=== PATIENT | female | born 1990 | race Caucasian/White ===

== ENCOUNTER 2021-03-24 12:08 | Inpatient (IN) | payer MEDICAID, OTHER ==
[~2021-03-24] VITALS: Ht 144.8 cm; Wt 68.3 kg
[2021-03-24 13:04] LABS: BASOPHILS % (AUTO) 0.3 % (0.0-2.0); EOSINOPHILS % (AUTO) 0.2 % (1.0-6.0); HEMATOCRIT 37.1 % (36-46); HEMOGLOBIN 12.5 g/dL (12.0-16.0); LYMPHOCYTES % (AUTO) 17.9 % (22.0-44.0); MEAN CORPUSCULAR HEMOGLOBIN 27.8 pg (26.0-34.0); MEAN CORPUSCULAR HGB CONC 33.6 G/dL (31.0-37.0); MEAN CORPUSCULAR VOLUME 83 fL (80-100); MONOCYTES # (AUTO) 0.8 K/uL (0.1-1.0); MONOCYTES % (AUTO) 6.9 % (2.0-9.0); NEUTROPHILS # (AUTO) 8.1 K/uL (1.8-7.7); NEUTROPHILS % (AUTO) 74.7 % (40.0-70.0); PLATELET COUNT (AUTO) 307 K/uL (150-450); RED BLOOD CELL COUNT(AUTO) 4.48 MIL/uL (4.00-5.20); RED CELL DISTRIBUTION WIDTH 13.4 % (11.5-14.5)
[2021-03-24 13:19] LABS: ANION GAP 3 mmol/L (8-16); CALCIUM, TOTAL 9.3 mg/dL (8.8-10.5); CARBON DIOXIDE 32 mmol/L (22-29); CHLORIDE 104 mmol/L (98-107); CREATININE 0.71 mg/dL (0.60-1.30); GLOMERULAR FILTR. RATE CALC > 60 mL/min (>60); GLUCOSE,RANDOM 103 mg/dL (70-110); POTASSIUM 3.5 mmol/L (3.5-5.1); SODIUM SERUM 139 mmol/L (136-145); UREA NITROGEN, BLOOD 17 mg/dL (7-18)
[2021-03-24 13:23] LABS: COVID AG,FIA SOURCE NASOPHARYNGEAL
[2021-03-24 13:28] LABS: ALANINE AMINOTRANSFERASE 20 U/L (12-78); ALBUMIN 3.6 g/dL (3.4-5.0); ALKALINE PHOSPHATASE 94 U/L (46-116); ASPARTATE AMINOTRANSFERASE 15 U/L (15-37); BILIRUBIN,TOTAL 0.4 mg/dL (0.1-1.0); TOTAL PROTEIN, SERUM 7.2 g/dL (6.4-8.2)
[2021-03-24 13:45] LABS: HCG,QUANTITATIVE 1 mIU/mL (0-6)
[2021-03-24] MEDS ORDERED: ZOLPIDEM TARTRATE 10 MG TABLET PO PRN (15:00)
[2021-03-24] MEDS ORDERED: INFLUENZA VIRUS VACCINE QVS 2021-22 (6MO+)/PF 60 MCG/0.5 ML SYRINGE IM. ONE (20:00)
[2021-03-24 20:09] VITALS: BP 122/79
[2021-03-25 08:00] VITALS: BP 124/82
[2021-03-25 16:15] VITALS: BP 123/86
[2021-03-25] MEDS: LORazepam 2 MG TABLET PO PRN (18:50)
[2021-03-25] MEDS: HALOPERIDOL 5 MG TABLET PO PRN (18:50)
[2021-03-25] MEDS ORDERED: DOCUSATE SODIUM 100 MG CAPSULE PO PRN (20:30)
[2021-03-25] MEDS ORDERED: IBUPROFEN 600 MG TABLET PO PRN (20:30)
[2021-03-25] MEDS ORDERED: PETROLATUM,WHITE 28 GM JELLY TP PRN (20:30)
[2021-03-25] MEDS ORDERED: CloNIDine HCL 0.1 MG TABLET PO PRN (20:30)
[2021-03-25] MEDS ORDERED: MAGNESIUM HYDROXIDE SUSPENSION 30 ML UDCUP PO PRN (20:30)
[2021-03-25] MEDS ORDERED: ALBUTEROL SULFATE HFA 90 MCG/PUFF 8 GM INHALER IH PRN (20:30)
[2021-03-25] MEDS ORDERED: OMEPRAZOLE 20 MG CAPSULE PO PRN (20:30)
[2021-03-25] MEDS ORDERED: ACETAMINOPHEN 325 MG TABLET PO PRN (20:30)
[2021-03-25] MEDS ORDERED: BACITRACIN 28 GM OINTMENT TP PRN (20:30)
[2021-03-25] MEDS ORDERED: LOPERAMIDE HCL 2 MG CAPSULE PO PRN (20:30)
[2021-03-25] MEDS ORDERED: ONDANSETRON HCL 4 MG TABLET PO PRN (20:30)
[2021-03-25] MEDS ORDERED: BENZOCAINE/MENTHOL LOZENGE PO PRN (20:30)
[2021-03-25] MEDS ORDERED: MAG HYDROX/AL HYDROX/SIMETH ES 30 ML SUSPENSION UDCUP PO PRN (20:30)
[2021-03-26 08:09] VITALS: BP 130/82
[2021-03-26 08:20] LABS: CHOL/HDL RATIO 2.8 (3.9-5.7); FREE T4 (FREE THYROXINE) 1.25 ng/dL (0.76-1.46); THYROID STIMULATING HORMONE 2.97 uIU/mL (0.36-3.74)
[2021-03-26 14:55] LABS: APPEARANCE,URINE CLEAR (CLEAR); BILIRUBIN,URINE NEGATIVE (NEGATIVE); GLUCOSE, URINE (UA) NEGATIVE (NEGATIVE); KETONES,URINE NEGATIVE (NEGATIVE); LEUKOCYTE ESTERASE ,URINE TRACE (NEGATIVE); NITRATE,URINE NEGATIVE (NEGATIVE); OCCULT BLOOD,URINE NEGATIVE (NEGATIVE); PROTEIN,URINE NEGATIVE (NEGATIVE); UROBILINOGEN,URINE 0.2 mg/dL (<=1.0)
[2021-03-26 14:57] LABS: AMPHET/METH SCREEN,URINE NEGATIVE (NEGATIVE); BARBITURATE SCREEN, URINE NEGATIVE (NEGATIVE); BENZODIAZEPINES SCREEN,URINE NEGATIVE (NEGATIVE); CANNABINOID SCREEN,URINE NEGATIVE (NEGATIVE); COCAINE SCREEN,URINE NEGATIVE (NEGATIVE); METHADONE SCREEN, URINE NEGATIVE (NEGATIVE); OPIATE SCREEN,URINE NEGATIVE (NEGATIVE)
[2021-03-26 14:58] LABS: PHENCYCLIDINE SCREEN,URINE NEGATIVE (NEGATIVE)
[2021-03-26 15:09] LABS: BACTERIA,URINE None Seen /HPF (None Seen); RBC,URINE None Seen /HPF (0-2); SQUAMOUS EPITHELIAL CELL,UR Rare /LPF (None Seen); WBC,URINE 0-2 /HPF (0-5)
[2021-03-26 16:45] VITALS: BP 123/76
[2021-03-26] MEDS: OLANZapine 10 MG TABLET PO SCH (20:57)
[2021-03-27 08:14] VITALS: BP 107/67
[2021-03-27 16:19] VITALS: BP 119/74
[2021-03-27] MEDS: OLANZapine 10 MG TABLET PO SCH (20:47)
[2021-03-28 08:59] VITALS: BP 108/70
[2021-03-28 16:25] VITALS: BP 134/98
[2021-03-28] MEDS: LORazepam 2 MG TABLET PO PRN (20:53)
[2021-03-28] MEDS: OLANZapine 10 MG TABLET PO SCH (21:07)
[2021-03-29 16:08] VITALS: BP 113/78
[2021-03-29] MEDS: HALOPERIDOL 5 MG TABLET PO PRN ×2 (16:26→20:00)
[2021-03-29] MEDS: LORazepam 2 MG TABLET PO PRN (20:00)
[2021-03-29] MEDS: OLANZapine 10 MG TABLET PO SCH (21:12)
[2021-03-30 16:40] VITALS: BP 137/74
[2021-03-30] MEDS: LORazepam 2 MG TABLET PO PRN (18:17)
[2021-03-30] MEDS: HALOPERIDOL 5 MG TABLET PO PRN (18:17)
[2021-03-30] MEDS: OLANZapine 10 MG TABLET PO SCH (20:51)
[2021-03-31 08:58] VITALS: BP 121/71
[2021-03-31 14:34] LABS: COVID AG,FIA SOURCE NASAL SWAB
[2021-03-31] MEDS ORDERED: OLAN7.5T22 PO (14:47)
[2021-03-31] MEDS ORDERED: OLANZapine 5 MG TABLET PO SCH (21:00)
== END 2021-03-31 17:45 | disposition home or self-care (01) | DRG 750 ==
LOC: EMS 12:54 → 3EC 17:20
PROVIDERS: ADMIT Psychiatry & Neurology Psychiatry; ATTEND Psychiatry & Neurology Psychiatry
DX: F20.9 Schizophrenia, unspecified (principal); E66.9 Obesity, unspecified; F31.9 Bipolar disorder, unspecified; Z20.822 Contact with and (suspected) exposure to COVID-19; K59.00 Constipation, unspecified; F41.9 Anxiety disorder, unspecified; G47.00 Insomnia, unspecified; Z68.32 Body mass index [BMI] 32.0-32.9, adult
CPT/HCPCS: 80053; 80061; 80307; 81001; 84439; 84443; 84702; 85025; 99285; G0480

== ENCOUNTER 2023-07-12 14:00 | Emergency (ER) | payer MEDICAID, OTHER ==
[~2023-07-12 14:00] MED LIST: OLAN7.5T22 PO
== END 2023-07-12 15:35 | disposition left against medical advice (07) ==
LOC: EMS 14:00
DX: R10.2 Pelvic and perineal pain (principal); Z53.21 Procedure and treatment not carried out due to patient leaving prior to being seen by health care provider